=== PATIENT | female | born 1985 | race Caucasian/White ===

== ENCOUNTER 2020-12-30 03:46 | Emergency (ER) | payer MEDICAID ==
[~2020-12-30] VITALS: Ht 160 cm; Wt 61.0 kg
[2020-12-30 04:04] VITALS: BP 171/93
[2020-12-30] MEDS ORDERED: HYDROCODONE/ACETAMINOPHEN 5/325MG TABLET PO STA (04:31)
[2020-12-30] MEDS ORDERED: IBUP-2029 PO (06:04)
[2020-12-30] MEDS ORDERED: CYCL5TAB MT (06:04)
== END 2020-12-30 06:33 | disposition home or self-care (01) ==
LOC: ER 04:01
DX: S00.03XA Contusion of scalp, initial encounter (principal); S16.1XXA Strain of muscle, fascia and tendon at neck level, initial encounter; V49.49XA Driver injured in collision with other motor vehicles in traffic accident, initial encounter; Y93.89 Activity, other specified; Y92.89 Other specified places as the place of occurrence of the external cause; Y99.8 Other external cause status
CPT/HCPCS: 72100; 81025; 99285